=== PATIENT | male | born 1985 | race Caucasian/White ===

== ENCOUNTER 2017-09-19 08:41 | Emergency (ER) | payer OTHER ==
[~2017-09-19] VITALS: Ht 180.3 cm; Wt 84.1 kg
[2017-09-19] MEDS ORDERED: PERCOCET 5MG/325MG TAB PO ONE (09:15)
[2017-09-19] MEDS ORDERED: BACLOFEN 10 MG TAB PO ONE (09:15)
--- NOTE | 2017-09-19 09:40 | REP ---
Clinical: Trauma. Snowboarding injury . Technique: AP, lateral, bilateral oblique, and coned-down views. Findings: Alignment and lordosis is maintained. The vertebral bodies including transverse process and spinous processes are intact and normal. There is no evidence for acute fracture / compression injury or subluxation. No evidence for spondylolysis or spondylolisthesis. No significant degenerative change is noted. Impression: Normal lumbosacral spine radiograph series. Signed by Nils Loza MD 09/19/2017 09:32 A
[2017-09-19 09:55] VITALS: BP 126/76
[2017-09-19] MEDS ORDERED: BACL10TA2 PO (09:59)
[2017-09-19] MEDS ORDERED: NORCOTAB PO (09:59)
[2017-09-19] MEDS ORDERED: NORCO 5/325MG TABLET (BULK FOR ED) PO ONE (10:00)
== END 2017-09-19 10:24 | disposition home or self-care (01) ==
LOC: M ED 08:41
DX: S33.5XXA Sprain of ligaments of lumbar spine, initial encounter (principal); F17.220 Nicotine dependence, chewing tobacco, uncomplicated; W19.XXXA Unspecified fall, initial encounter; Y92.89 Other specified places as the place of occurrence of the external cause; Y93.23 Activity, snow (alpine) (downhill) skiing, snowboarding, sledding, tobogganing and snow tubing; Y99.9 Unspecified external cause status